=== PATIENT | male | born 1995 | race Caucasian/White ===

== ENCOUNTER 2019-08-17 19:09 | Emergency (ER) | payer OTHER ==
[~2019-08-17] VITALS: Ht 170.2 cm; Wt 86.4 kg
[2019-08-17] MEDS ORDERED: BACT800T5 PO (20:21)
[2019-08-17 20:27] VITALS: BP 142/96
== END 2019-08-17 20:47 | disposition home or self-care (01) ==
LOC: M ED 19:09
DX: L03.116 Cellulitis of left lower limb (principal)